=== PATIENT | female | born 2005 | race Caucasian/White ===

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

== ENCOUNTER 2025-05-05 14:08 | Emergency (ER) | payer MEDICAID ==
[~2025-05-05] VITALS: Ht 160 cm; Wt 50.0 kg
[2025-05-05 14:11] VITALS: TEMP 37
[2025-05-05] MEDS: PREDNISONE 20MG TABLET PO STA (14:45)
[2025-05-05] MEDS ORDERED: P50 MT (14:52)
[2025-05-05 15:20] VITALS: PULSE 88; RESP 22; O2SAT 98
[2025-05-05] MEDS: IPRATROPIUM/ALBUTEROL 0.5-3(2.5)MG/3ML NEB HHN ONE (15:20)
[2025-05-05 16:07] VITALS: BP 101/54; PULSE 100; RESP 18; O2SAT 100
== END 2025-05-05 17:32 | disposition home or self-care (01) ==
LOC: ER 14:08
DX: J45.901 Unspecified asthma with (acute) exacerbation (principal); R06.02 Shortness of breath; F41.9 Anxiety disorder, unspecified; Z79.899 Other long term (current) drug therapy
CPT/HCPCS: 94640; 99283; J7512; Z7610 ×2; 94664